=== PATIENT | female | born 1960 | race Caucasian/White ===

== ENCOUNTER 2024-06-30 13:08 | Emergency (ER) | payer MEDICARE, BC, SELFPAY ==
[2024-06-30 13:22] VITALS: BP 165/84
[2024-06-30 14:10] VITALS: BMI 28.6
--- NOTE | 2024-06-30 14:26 | EDRN ---
Pt has L ACW port and requested access and blood to be drawn from her port. Pt states it is a power port.
[2024-06-30 14:48] LABS: % Basophils 0.8 % (0-2); % Eosinophils 12.4 % (0-6); % Immature Granulocytes 0.2 % (0-0.5); % Lymphocytes 16.2 % (20.5-51.1); % Monocytes 11.2 % (1.7-9.3); % Neutrophils 59.2 % (42.2-75.2); Absolute Basophils 0.1 10^3/uL (0-0.2); Absolute Eosinophils 0.7 10^3/uL (0-0.7); Absolute Monocytes 0.7 10^3/uL (0.1-0.6); Absolute Neutrophils 3.5 10^3/uL (1.4-6.5); Hematocrit 38.9 % (37.0-47.0); Hemoglobin 13.7 g/dL (12.0-16.0); Mean Corp Hgb Conc. 35.2 g/dL (33.0-37.0); Mean Corpuscular Hgb 29.7 pg (27.0-31.0); Mean Corpuscular Volume 84.4 fL (81.0-99.0); Mean Platelet Volume 10.2 fL (7.4-10.4); Nucleated Red Blood Cells % 0 %; Platelet Count 172 10^3/uL (130-400); Red Blood Cell Count 4.61 10^6/uL (4.20-5.40); Red Cell Dist. Width 14.4 % (11.5-14.5)
--- NOTE | 2024-06-30 14:52 | ED.GENMED ---
History of Present Illness
General
Chief Complaint: Dehydration Symptoms
Source: patient
Exam Limitations: none
Time Seen by Provider: 06/30/24 14:06
Nursing documentation reviewed up to this point in time: agreed with
History of Present Illness
History of Present Illness:
Patient is a 64-year-old female with past medical history of breast cancer stroke hypertension presents to the ER complaining of weakness for the past weak. She wanted to be sure her sodium was not low as it was low in the past and put herself on a
fluid restriction of 70 ounces per day. Since then she has felt weak. She denies any fever or chills. Denies any nasal congestion cough cold symptoms. Denies any black stools. Denies any abdominal pain chest pain shortness of breath. She has
no other complaints.
Past History
Past History
ED Past Medical History: Cancer (Breast cancer), CVA (Right hemispheric CVA January 2022), HTN, Hypercholesterolemia, Valvular disease (Mitral and tricuspid regurgitation) and Other (Chronic headaches, back pain, neck pain)
ED Past Surgical History: Gynecological (Bilateral mastectomies) and Other (mastectomy)
Social History
Tobacco: Non-smoker
Alcohol: Occasional
Drug: None
Personal:
Living: with family
Employment: Retired
Family History
Family History: Hypertension
Review of Systems
Review of Systems
Allergies reviewed?: Yes
All Other Systems: ROS reviewed and negative except as documented in HPI and ROS
Constitutional: Reports fatigue
Respiratory: Reports no symptoms
Cardiac: Reports no symptoms; Denies chest pain, palpitations or syncope
ABD/GI: Reports no symptoms
: Reports no symptoms; Denies dysuria or incontinence
Musculoskeletal: Reports no symptoms
Neurological: Reports no symptoms
Psychiatric: Reports no symptoms
Phy Exam
General Physical Exam
General Presentation: no apparent distress
General age: appears stated age
General Skin: warm and dry
General Habitus: normal
General Mental: alert
General Hydration: appears well hydrated
Cardiovascular Exam
Cardiovascular Exam: regular rate/rhythm, no murmur and normal peripheral pulses
Pulmonary Exam
Pulmonary Exam: lungs clear and no respiratory distress
Neurological Exam
Neurological Exam: alert and oriented x3
Musculoskeletal Exam
Musculoskeletal Exam: full ROM
Skin Exam
Skin Exam: normal color and warm/dry
Psychiatric Exam
Psychiatric Exam: normal mood/affect
Course
Orders/Labs/Results
Orders:
Orders
06/30/24 14:06
Electrocardiogram (*1) Urgent
Reason for Study: Chest Pain
Cardiac Monitoring- Treatment ONCE
EKG- Treatment ONCE
IV Insert/Care/Rem.- Treatment PRN
06/30/24 14:39
Complete Blood Count/With Diff Urgent
Comprehensive Metabolic Panel Urgent
06/30/24 15:19
COVID-19 Antigen Urgent
Source: Nasal Swab
UA Reflex to Culture [Urinalysis Reflex To Culture] Urgent
Date Specimen was Collected: 06/30/24
Time Specimen was Collected: 15:13
Urine Microscopic Reflex Cult Urgent
06/30/24 16:47
0.9% Sodium Chloride 1000 ml [Nss] 1,000 ml IV BOLUS
Abnormal Lab Results
06/30/24 06/30/24
14:39 15:19
Absolute Lymphs (auto) 1.0 L 10^3/uL
(1.2-3.4)
Absolute Monos (auto) 0.7 H 10^3/uL
(0.1-0.6)
Lymphocytes % 16.2 L %
(20.5-51.1)
Monocytes % 11.2 H %
(1.7-9.3)
Eosinophils % 12.4 H %
(0-6)
Sodium 134 L mmol/L
(135-145)
BUN 36 H mg/dl
(7-17)
Glucose 122 H mg/dl
(70-99)
AST 54 H U/L
(14-36)
ALT 89 H U/L
(0-35)
Alkaline Phosphatase 192 H U/L
(38-126)
Total Protein 6.2 L g/dl
(6.3-8.2)
Leukocyte Esterase Rfl Trace A
(Negative)
06/30/24 14:39
06/30/24 14:39
Vital Signs
Initial and Last Documented VS:
Initial Vital Signs
Temp Pulse Resp BP Pulse Ox
98.8 F 80 20 165/84 97
06/30/24 13:22 06/30/24 13:22 06/30/24 13:22 06/30/24 13:22 06/30/24 13:22
Last Documented Vital Signs
Temp Pulse Resp BP Pulse Ox
98.8 F 70 21 154/81 95
06/30/24 13:22 06/30/24 16:30 06/30/24 16:30 06/30/24 16:00 06/30/24 16:30
MDM/Problems Addressed
MDM/Problems Addressed:
Patient is a 64-year-old male who presents to the ER appearing well. She has put her self on a fluid restriction because she was afraid her sodium was low and complains of weakness. Patient presented with a normal sodium of 134 however BUN of 36.
She appears dry on exam. She was hydrated here and feeling better. She is in no acute distress she has no other complaints. She denies any chest pain shortness of breath cough. She was tested for COVID and is negative. She has had elevated LFTs
in the past and they are again elevated. She denies any UTI symptoms and her UA is negative.
She was hydrated here in the ER and feels well after the home. She has an appoint with her primary care physician on for regular checkup. She has seen nephrology in the past and I did recommend that she should follow-up with them again.
She is to return if any worsening of symptoms however she is well-appearing in no acute distress .
she does have a history of high blood pressure however is due again for additional blood pressure medication
*Pulse Oximetry
Patient hypoxic: no
*EKG
Comparison EKG: no changes
Heart Rate: 71
Rate: normal
*Critical Care Note
Total Time (30-74mins, 75-104mins- exclusive of procedures): Not Applicable
ED Attending Note
-
Portions of this chart may have been created with voice recognition software.� Occasional wrong word or��sound alike� substitutions may have occurred due to the inherent limitations of voice recognition software.
Discharge Plan
Departure
Patient Disposition: Home (Routine Discharge)
Date of Disposition: 06/30/24
Time of Disposition: 18:08
Patient with high blood pressure during this ER visit?: Yes
Covid-19: Not Applicable
Discharge Problem:
Weakness
Instructions: Weakness ED, BLOOD PRESSURE
Prescriptions:
No Action
spironolactone 25 mg Tablet
25 mg PO DAILY
labetalol 300 mg Tablet
300 mg PO BID
lacosamide 100 mg Tablet
100 mg PO BID
calcium carbonate 600 mg calcium (1,500 mg) Tablet
600 mg PO BID
Centrum Adult 50 Plus
1 tab PO DAILY
lidocaine 4 % Adhesive Patch,Medicated
1 patch topical DAILY Qty: 5 0RF
polyethylene glycol 3350 [HealthyLax] 17 gram Powder In Packet
17 g PO DAILY Qty: 14 0RF
oxycodone 5 mg Tablet
5 mg PO Q4HPRN PRN (Reason: moderate pain) Qty: 4 0RF
lisinopril 20 mg Tablet
20 mg PO DAILY Qty: 30 0RF
aspirin 81 MG tablet,chewable
81 mg PO DAILY Qty: 4 0RF
nifedipine 30 MG tablet extended release
30 mg PO DAILY Qty: 90 0RF
nifedipine 60 MG tablet extended release
60 mg PO HS Qty: 90 0RF
Referrals:
Mell Sheikh PA-C [Family Provider] -
Amada Vergara MD [Active] -
Activity Restrictions/Additional Instructions:
Follow-up with your family doctor as scheduled on for reevaluation as well as your kidney specialist . please call their office to make an appointment return if any worsening of symptoms
Interventions
Interventions:
*Risk Screen - Suicide Last Done: 06/30/24 14:10
*General Assessment Last Done: 06/30/24 14:10
*Neglect/Abuse Screening Last Done: 06/30/24 14:10
ED- Fall Risk Assessment Last Done: 06/30/24 14:10
*ED COVID-19 Vaccine History Last Done: 06/30/24 14:10
ED- Cardiac Assessment Last Done: 06/30/24 14:30
ED- Neurological Assessment Last Done: 06/30/24 14:30
ED- Pulmonary Assessment Last Done: 06/30/24 14:30
Discharge Date and Time
Print Language: GREEK
--- NOTE | 2024-06-30 14:55 | EDRN ---
Sunil Patel NP in room w/pt.
--- NOTE | 2024-06-30 15:06 | EDRN ---
Pt in BR attempting urine spec at this time.
[2024-06-30 15:07] LABS: ALT (SGPT) 89 U/L (0-35); AST (SGOT) 54 U/L (14-36); Albumin 4.1 g/dl (3.5-5.0); Alkaline Phosphatase 192 U/L (38-126); Blood Urea Nitrogen 36 mg/dl (7-17); Calcium 9.2 mg/dl (8.4-10.2); Carbon Dioxide 22 mmol/L (22-30); Chloride 103 mmol/L (98-107); Estimated Creatinine Clearance 65 ml/min; Glucose 122 mg/dl (70-99); Potassium 4.4 mmol/L (3.5-5.1); Sodium 134 mmol/L (135-145); Total Bilirubin 0.3 mg/dl (0.2-1.3); Total Protein 6.2 g/dl (6.3-8.2); eGFR > 60.00
[2024-06-30 15:13] VITALS: BP 169/86
[2024-06-30 15:31] LABS: Urine Albumin Negative (Neg - Trace); Urine Bilirubin Negative (Negative); Urine Character Clear (Clear); Urine Color Straw; Urine Glucose Negative (Negative); Urine Ketone Negative (Negative); Urine Leukocyte Trace (Negative); Urine Nitrite Negative (Negative); Urine Occult Blood Negative (Negative); Urine Urobilinogen Negative (Neg - 1+); Urine pH 6.5 (5.0-9.0)
[2024-06-30 15:42] LABS: COVID-19 Antigen Negative (Negative)
[2024-06-30 15:43] LABS: Urine Red Blood Cell 0-2 /HPF (0-2); Urine White Cell 0-2 /HPF (0-5)
[2024-06-30 16:00] VITALS: BP 154/81
[2024-06-30] MEDS: NSS 1000 IV (16:58)
--- NOTE | 2024-06-30 16:58 | EDRN ---
This RN went into room to hang ordered IVF NSS wide open. Pt said that she could not have that much fluid or she will have a stroke. Spouse agreed to this. Pt also said that she is only allowed 70 ounces of fluid a day. Pt's BUN is 36 w/ 0.9 creat.
Pt was informed that she is very very dry and needs IV fluids per LABORATORY ADMINISTRATIVE DIRECTOR. Pt agreed to RN hanging IVF at this time.
[2024-06-30 17:00] VITALS: BP 175/102
--- NOTE | 2024-06-30 17:45 | EDRN ---
Sunil Patel FINAL ARMATURE TESTER in room w/ pt at this time.
[2024-06-30 18:00] VITALS: BP 210/99
--- NOTE | 2024-06-30 18:22 | EDRN ---
IV VAT RN Shira is deaccessing port at this time.
--- NOTE | 2024-06-30 18:43 | VATNOTE ---
left subq power port deaccesed per protocol however PCN, david Negrete, flushed with heparin prior to this VAT RN deaccessing port. at bedside.
== END 2024-06-30 18:30 | disposition home or self-care (01) ==
LOC: EMR 13:08
PROVIDERS: Emergency Medicine; Nurse Practitioner; EMERGENCY PHYSICIAN Emergency Medicine; FAMILY PHYSICIAN Physician Assistant Medical
DX: R53.1 Weakness (principal); R53.83 Other fatigue; Z11.52 Encounter for screening for COVID-19; C50.919 Malignant neoplasm of unspecified site of unspecified female breast; I10 Essential (primary) hypertension; E78.00 Pure hypercholesterolemia, unspecified; I08.1 Rheumatic disorders of both mitral and tricuspid valves; R56.9 Unspecified convulsions; M19.90 Unspecified osteoarthritis, unspecified site; Z79.82 Long term (current) use of aspirin; Z86.73 Personal history of transient ischemic attack (TIA), and cerebral infarction without residual deficits; Z90.13 Acquired absence of bilateral breasts and nipples; Z88.1 Allergy status to other antibiotic agents
CPT/HCPCS: 99284; 96360; 80053; 81003; 81015; 85025; 87811; 93005

== ENCOUNTER 2024-07-13 01:44 | Emergency (ER) | payer MEDICARE, BC, SELFPAY ==
[2024-07-13 01:45] VITALS: BMI 29.5
[2024-07-13 01:47] VITALS: BP 166/91
[2024-07-13 02:50] VITALS: BP 175/93
--- NOTE | 2024-07-13 02:53 | ED.GENMED ---
History of Present Illness
General
Chief Complaint: Dehydration Symptoms
Source: patient and previous hospital records (ED visit there 2 weeks ago June 30 for somewhat similar complaint; Prior hospitalization November 2023 for lumbar compression fracture. Discharged to senior care facility for short stay rehab.)
Exam Limitations: none
Time Seen by Provider: 07/13/24 02:37
Nursing documentation reviewed up to this point in time: agreed with
History of Present Illness
History of Present Illness:
This is a 64-year-old woman who resides at home with her . She has remote history of breast cancer with completion of treatment 2011. No history of recurrence. She has prior history of CVA 2021, hypertension, hyperlipidemia, history of
lumbar spine compression fracture with brief hospitalization November 2023 and then brief SNF stay thereafter for rehabilitation.
She complains of generalized weakness, generalized myalgias/arthralgias that began at least 3 weeks ago and was evaluated in this ED June 30 for similar complaints. At that time she had thought that perhaps her sodium level was low as she has a
remote history of hyponatremia and thus she placed herself on a fluid restriction for a week prior to ED visit on June 30.
Labs were unremarkable save for moderately elevated BUN, normal sodium, normal electrolytes. She was hydrated with 1 L normal saline solution and was feeling improved. Discharged to home and admits to feeling improved for approximately 3 days and
then symptoms have recurred since. She has since followed up with her primary care physician and was recommended to drink Gatorade throughout the day and she has been attempting to be liberal with her fluids but continues with generalized myalgias,
arthralgias but no fever, no dizziness nor lightheadedness, no abdominal pain but she does admit to intermittent queasiness and tonight had brief retching without vomiting.
She has had no diarrhea nor constipation, no dysuria and urgency and or hematuria. No headache, no palpitations.
Past History
Past History
ED Past Medical History: Cancer (Breast cancer), CVA (Right hemispheric CVA January 2022), HTN, Hypercholesterolemia, Valvular disease (Mitral and tricuspid regurgitation) and Other (Chronic headaches, back pain, neck pain)
ED Past Surgical History: Gynecological (Bilateral mastectomies) and Other (mastectomy)
Social History
Tobacco: Non-smoker
Alcohol: Occasional
Drug: None
Personal:
Living: with family
Employment: Retired
Family History
Family History: Hypertension
Phy Exam
Physical Exam
Physical Exam:
GENERAL: Alert , in no apparent distress. 64-year-old woman appears her stated age, awake and alert, pleasant, appears in no acute distress. is accompanying.
EYE: pupils equal and reactive. anicteric
NECK: Supple, nontender, no meningismus, no significant adenopathy.
ENT: posterior pharynx is clear, oral mucosa is very minimally dry.. TM clear b/l, nares patent.
CARDIAC: Regular rate and rhythm. no murmur.
LUNGS: Clear breath sounds bilaterally, no acute respiratory distress, no wheezes/rales/rhonchi
ABDOMEN: Soft, nondistended, without focal tenderness, no r/g, no cvat. normoactive BS.
NEUROLOGICAL: Alert and oriented x3, no focal neuro deficits. Motor strength is 5/5 bilaterally. Gross sensation is intact.
SKIN: Warm and dry, normal color, skin intact. No rash.
MUSCULOSKELETAL: No C/C/E. peripheral pulses are full and equal b/l. No palpable tenderness.
PSYCH: Normal and appropriate interaction.
Course
Orders/Labs/Results
Orders:
Orders
07/13/24 02:58
CRP [C-Reactive Protein] Urgent
Complete Blood Count/With Diff Urgent
Comprehensive Metabolic Panel Urgent
Creatine Phosphokinase Urgent
Free T4 Urgent
Lipase Urgent
Sed Rate [Erythrocyte Sed Rate] Urgent
TSH Reflex To Free T4 Urgent
Urinalysis Reflex To Culture Urgent
Date Specimen was Collected: 07/13/24
Time Specimen was Collected: 02:54
Urine Microscopic Reflex Cult Urgent
07/13/24 04:01
0.9% Sodium Chloride 1000 ml [Nss] 1,000 ml IV BOLUS
07/13/24 04:41
Electrocardiogram (*1) Urgent
Reason for Study: Atrial Fibrillation
07/13/24 04:43
Add On- LAB Urgent
Comments:: CPK
Tests Added?: CPK
Abnormal Lab Results
07/13/24
02:58
MPV 11.3 H fL
(7.4-10.4)
Absolute Eos (auto) 1.0 H 10^3/uL
(0-0.7)
Eosinophils % 15.4 H %
(0-6)
BUN 37 H mg/dl
(7-17)
Glucose 102 H mg/dl
(70-99)
ALT 49 H U/L
(0-35)
Alkaline Phosphatase 172 H U/L
(38-126)
TSH (Reflex) 6.06 H uIU/ml
(0.47-4.68)
Leukocyte Esterase Rfl Trace A
(Negative)
07/13/24 02:58
07/13/24 02:58
Vital Signs
Initial and Last Documented VS:
Initial Vital Signs
Temp Pulse Resp BP Pulse Ox
98.1 F 62 20 166/91 98
07/13/24 01:47 07/13/24 01:47 07/13/24 01:47 07/13/24 01:47 07/13/24 01:47
Last Documented Vital Signs
Temp Pulse Resp BP Pulse Ox
97.6 F 72 23 149/90 97
07/13/24 02:48 07/13/24 06:07 07/13/24 06:07 07/13/24 06:07 07/13/24 06:07
MDM/Problems Addressed
Differential Diagnosis Includes:
Patient presents with ongoing, at least 3-week history of several nonspecific complaints including generalized myalgias, arthralgias, generalized weakness.
She is concerned for recurrent dehydration however has abandoned fluid restriction and has been attempting to be more liberal with her fluids over the past 2 weeks. She has had no vomiting or diarrhea thus should have no reason to be dehydrated.
She is chronically maintained on potassium sparing diuretic/spironolactone but there has been no recent change in medications.
Overall exam is benign. No focal neurodeficits.
Will repeat labs, assess for potential electrolyte abnormality, assess for continued dehydration/prerenal azotemia, will check thyroid functions due to myalgias will check sed rate and CPK as well. Concern for potential polymyalgia rheumatica,
myositis.
Chronic conditions affecting care: HTN, Neurological disorder, Psychiatric illness and Cancer
*Pulse Oximetry
Patient hypoxic: no
*[place] Clerk Interpretation
Rate: normal
Interpretation: normal
Rhythm: sinus
*Critical Care Note
Total Time (30-74mins, 75-104mins- exclusive of procedures): Not Applicable
Update Note
Update Note:
07/13/2024 0700 AM
Labs show normal electrolytes but BUN remains elevated at 37, normal creatinine. Normal CBC. Unremarkable inflammatory markers. Normal CPK.
TSH is mildly elevated at 6.06 but normal free T4 at 1.4.
Patient feeling improved after 1 L of IV fluids.
Recommend she stay well-hydrated on a daily basis, drink plenty of water etc.
Follow-up with PCP. If symptoms persist would recommend repeating thyroid functions in perhaps 2 to 3 months and consider initiating one half dose of diuretic.
Return precautions discussed.
ED Attending Note
-
Portions of this chart may have been created with voice recognition software.� Occasional wrong word or��sound alike� substitutions may have occurred due to the inherent limitations of voice recognition software.
Discharge Plan
Departure
Patient Disposition: Home (Routine Discharge)
Date of Disposition: 07/13/24
Time of Disposition: 06:59
Patient with high blood pressure during this ER visit?: No
Condition: Good
Discharge Problem:
Prerenal azotemia, Malaise and fatigue
Instructions: Why Water Is Important to Health, Dehydration, Adult ED
Prescriptions:
No Action
spironolactone 25 mg Tablet
25 mg PO DAILY
labetalol 300 mg Tablet
300 mg PO BID
lacosamide 100 mg Tablet
100 mg PO BID
calcium carbonate 600 mg calcium (1,500 mg) Tablet
600 mg PO BID
Centrum Adult 50 Plus
1 tab PO DAILY
lidocaine 4 % Adhesive Patch,Medicated
1 patch topical DAILY Qty: 5 0RF
oxycodone 5 mg Tablet
5 mg PO Q4HPRN PRN (Reason: moderate pain) Qty: 4 0RF
aspirin 81 MG tablet,chewable
81 mg PO DAILY Qty: 4 0RF
nifedipine 30 MG tablet extended release
30 mg PO DAILY Qty: 90 0RF
nifedipine 60 MG tablet extended release
60 mg PO HS Qty: 90 0RF
Referrals:
Mell Sheikh PA-C [Family Provider] - Call in 1-3 days for appt
Interventions
Interventions:
*General Assessment Last Done: 07/13/24 01:50
*Neglect/Abuse Screening Last Done: 07/13/24 01:50
ED- Fall Risk Assessment Last Done: 07/13/24 03:25
ED- Cardiac Assessment Last Done: 07/13/24 03:25
ED- Neurological Assessment Last Done: 07/13/24 03:25
ED- Pulmonary Assessment Last Done: 07/13/24 03:25
Discharge Date and Time
Print Language: FAROESE
[2024-07-13 03:18] LABS: % Basophils 0.8 % (0-2); % Eosinophils 15.4 % (0-6); % Immature Granulocytes 0.2 % (0-0.5); % Lymphocytes 20.8 % (20.5-51.1); % Monocytes 8.6 % (1.7-9.3); % Neutrophils 54.2 % (42.2-75.2); Absolute Basophils 0.1 10^3/uL (0-0.2); Absolute Lymphocytes 1.4 10^3/uL (1.2-3.4); Absolute Monocytes 0.6 10^3/uL (0.1-0.6); Absolute Neutrophils 3.6 10^3/uL (1.4-6.5); Hematocrit 40.6 % (37.0-47.0); Hemoglobin 14.2 g/dL (12.0-16.0); Mean Corpuscular Hgb 29.5 pg (27.0-31.0); Mean Corpuscular Volume 84.2 fL (81.0-99.0); Mean Platelet Volume 11.3 fL (7.4-10.4); Nucleated Red Blood Cells % 0 %; Platelet Count 184 10^3/uL (130-400); Red Blood Cell Count 4.82 10^6/uL (4.20-5.40); Red Cell Dist. Width 14.4 % (11.5-14.5); White Blood Cell Count 6.5 10^3/uL (4.8-10.8)
[2024-07-13 03:19] LABS: Urine Albumin Negative (Neg - Trace); Urine Bilirubin Negative (Negative); Urine Character Clear (Clear); Urine Color Straw; Urine Glucose Negative (Negative); Urine Ketone Negative (Negative); Urine Leukocyte Trace (Negative); Urine Nitrite Negative (Negative); Urine Occult Blood Negative (Negative); Urine Urobilinogen Negative (Neg - 1+)
[2024-07-13 03:29] LABS: Erythrocyte Sed Rate 8 mm/hour (0-20); Urine Red Blood Cell None Seen /HPF (0-2); Urine White Cell 0-2 /HPF (0-5)
[2024-07-13 03:58] LABS: ALT (SGPT) 49 U/L (0-35); AST (SGOT) 34 U/L (14-36); Albumin 4.5 g/dl (3.5-5.0); Alkaline Phosphatase 172 U/L (38-126); Blood Urea Nitrogen 37 mg/dl (7-17); Carbon Dioxide 22 mmol/L (22-30); Chloride 102 mmol/L (98-107); Estimated Creatinine Clearance 59 ml/min; Glucose 102 mg/dl (70-99); Lipase 155 U/L (23-300); Potassium 4.1 mmol/L (3.5-5.1); Sodium 136 mmol/L (135-145); Total Bilirubin 0.5 mg/dl (0.2-1.3); Total Protein 6.6 g/dl (6.3-8.2); eGFR > 60.00
[2024-07-13 04:00] VITALS: BP 150/73
[2024-07-13] MEDS: NSS 1000 IV (04:24)
[2024-07-13 04:28] LABS: TSH Reflex To Free T4 6.06 uIU/ml (0.47-4.68)
[2024-07-13 04:41] LABS: C-Reactive Protein < 5.00 mg/L (0.0-10.00)
[2024-07-13 05:00] VITALS: BP 154/92
[2024-07-13 05:05] LABS: Creatine Phosphokinase 51 U/L (30-135)
[2024-07-13 06:07] VITALS: BP 149/90
[2024-07-13 07:15] VITALS: BP 142/74
== END 2024-07-13 07:58 | disposition home or self-care (01) ==
LOC: EMR 01:44
PROVIDERS: EMERGENCY PHYSICIAN Emergency Medicine; FAMILY PHYSICIAN Physician Assistant Medical; REFERRING PHYSICIAN Internal Medicine
DX: E86.0 Dehydration (principal); I10 Essential (primary) hypertension; E78.00 Pure hypercholesterolemia, unspecified; I48.91 Unspecified atrial fibrillation; Z82.49 Family history of ischemic heart disease and other diseases of the circulatory system; Z85.3 Personal history of malignant neoplasm of breast; Z86.73 Personal history of transient ischemic attack (TIA), and cerebral infarction without residual deficits; Z90.13 Acquired absence of bilateral breasts and nipples
CPT/HCPCS: 99282; 96374; 96361; 80053; 81003; 81015; 82550; 83690; 84439; 84443; 85025; 85652; 86140

== ENCOUNTER 2024-07-27 12:06 | Emergency (ER) | payer MEDICARE, BC, SELFPAY ==
[2024-07-27 12:08] VITALS: BP 202/105
--- NOTE | 2024-07-27 12:55 | ED.GENMED ---
History of Present Illness
General
Chief Complaint: Headache
Source: patient
Time Seen by Provider: 07/27/24 12:37
History of Present Illness
History of Present Illness:
64yoF with a history of prior CVA, hypertension, and CKD presenting with her for evaluation of a headache. Symptoms initially started yesterday with a 'gripping' sensation in her neck muscles as well as the back of her right knee. She has
had the symptoms previously which have been attributed to dehydration. Patient was watching the football game less than an hour prior to arrival. She had an abrupt onset of a right sided parietal headache. This was followed by right facial
twitching. She states she felt a 'mcnulty of something' throughout her body and had a weird sensation. She then felt like she could not get her words out correctly so she came to the ED. Patient is speaking normally currently. Symptoms have
resolved with the exception of the headache. She had nausea at that time but denies any vomiting
Past History
Past History
ED Past Medical History: Cancer (Breast cancer), CVA (Right hemispheric CVA January 2022), HTN, Hypercholesterolemia, Valvular disease (Mitral and tricuspid regurgitation) and Other (Chronic headaches, back pain, neck pain)
ED Past Surgical History: Gynecological (Bilateral mastectomies) and Other (mastectomy)
Social History
Tobacco: Non-smoker
Alcohol: Occasional
Drug: None
Personal:
Living: with family
Employment: Retired
Family History
Family History: Hypertension
Phy Exam
General Physical Exam
General Presentation: well appearing and no apparent distress
General age: appears stated age
General Skin: warm and dry
General Habitus: normal
General Mental: alert
Cardiovascular Exam
Cardiovascular Exam: regular rate/rhythm
Pulmonary Exam
Pulmonary Exam: lungs clear, no respiratory distress, no crackles and no wheezing
Neurological Exam
Neurological Exam: alert, CN II-XII intact, no motor deficits, no sensory deficits, speech normal and other (CN 2-12 intact. PERRL. EOMs intact. Visual nath normal. 5/5 strength and gross sensation intact in all extremities. Negative drift x4.
Normal finger to nose and heel to saucedo bilaterally. )
NIH Stroke Score
Level of Consciousness: 0 - Alert
LOC questions: 0-Answers both correctly
LOC Commands: 0-Performs both correctly
Best Gaze: 0-Normal
Visual Nath: 0=Normal, no visual loss
Facial palsy: 0=Normal, symmetrical
Motor - Right Arm: 0=No drift 10 seconds
Motor - Left Arm: 0=No drift 10 seconds
Motor - Right Le-No drift 5 seconds
Motor - Left Le-No drift 5 seconds
Limb Ataxia: 0-Absent
Sensation: 0-Normal
Best Language: 0-No aphasia
Dysarthria: 0-Normal
Extinction and Inattention: 0-No abnormality
Total Score:: 0
Kashif Coma Scale
Eye Opening: Spontaneous
Verbal Response: Oriented
Motor Response: Obeys Commands
GCS Total Score: 15
Skin Exam
Skin Exam: normal color and warm/dry
Psychiatric Exam
Psychiatric Exam: normal mood/affect
Course
Orders/Labs/Results
Orders:
Orders
07/27/24 12:12
CT Head W/o Iv Contrast Urgent
Comment:
Reason For Exam: headache
07/27/24 13:00
0.9% Sodium Chloride 500 ml [Nss] 500 ml IV BOLUS
07/27/24 13:35
Complete Blood Count/With Diff Urgent
Comprehensive Metabolic Panel Urgent
ESR [Erythrocyte Sed Rate] Urgent
Lipase Urgent
Magnesium Urgent
Abnormal Lab Results
07/27/24
13:35
MPV 10.8 H fL
(7.4-10.4)
Absolute Lymphs (auto) 0.9 L 10^3/uL
(1.2-3.4)
Lymphocytes % 12.7 L %
(20.5-51.1)
Eosinophils % 8.0 H %
(0-6)
Sodium 133 L mmol/L
(135-145)
Chloride 95 L mmol/L
(98-107)
BUN 26 H mg/dl
(7-17)
Glucose 104 H mg/dl
(70-99)
AST 40 H U/L
(14-36)
ALT 50 H U/L
(0-35)
Alkaline Phosphatase 158 H U/L
(38-126)
07/27/24 13:35
07/27/24 13:35
Vital Signs
Initial and Last Documented VS:
Initial Vital Signs
Temp Pulse Resp BP Pulse Ox
98.5 F 67 16 202/105 98
07/27/24 12:08 07/27/24 12:08 07/27/24 12:08 07/27/24 12:08 07/27/24 12:08
Last Documented Vital Signs
Temp Pulse Resp BP Pulse Ox
98.5 F 68 25 196/98 97
07/27/24 12:08 07/27/24 13:01 07/27/24 13:01 07/27/24 13:01 07/27/24 13:01
MDM/Problems Addressed
Differential Diagnosis Includes:
64yoF here with a headache. Started less than an hour ago. Associated with R facial twitching and a 'rushing' sensation. Patient also felt like she was having trouble getting her words out. Symptoms have resolved other than her headache. She is
hypertensive on arrival with otherwise normal vitals. She is well appearing in no distress. Neuro exam is non-focal. NIHSS 0. Differential diagnosis includes but is not limited to: complex migraine, electrolyte abnormality, dehydration, TIA
Initial ED plan: Check CBC, CMP, ESR, magnesium, and CT head. IV fluid bolus.
*Critical Care Note
Total Time (30-74mins, 75-104mins- exclusive of procedures): Not Applicable
Update Note
Update Note:
ESR is normal. Potassium/chloride mildly low. Renal function at baseline. CT head is negative for acute findings. On reassessment, headache has resolved and she is feeling much better. BP improved with SBP in the 170s. She is stable for discharge.
Advised close f/u with PCP and strict ED return precautions discussed. She was discharged in stable condition.
ED Attending Note
-
Portions of this chart may have been created with voice recognition software.� Occasional wrong word or��sound alike� substitutions may have occurred due to the inherent limitations of voice recognition software.
Discharge Plan
Departure
Patient Disposition: Home (Routine Discharge)
Date of Disposition: 07/27/24
Time of Disposition: 15:29
Patient with high blood pressure during this ER visit?: Yes
Discharge Problem:
Acute nonintractable headache
Instructions: Headache, Adult (DC)
Prescriptions:
No Action
spironolactone 25 mg Tablet
25 mg PO DAILY
labetalol 300 mg Tablet
300 mg PO BID
lacosamide 100 mg Tablet
100 mg PO BID
calcium carbonate 600 mg calcium (1,500 mg) Tablet
600 mg PO BID
Centrum Adult 50 Plus
1 tab PO DAILY
lidocaine 4 % Adhesive Patch,Medicated
1 patch topical DAILY Qty: 5 0RF
oxycodone 5 mg Tablet
5 mg PO Q4HPRN PRN (Reason: moderate pain) Qty: 4 0RF
aspirin 81 MG tablet,chewable
81 mg PO DAILY Qty: 4 0RF
nifedipine 30 MG tablet extended release
30 mg PO DAILY Qty: 90 0RF
nifedipine 60 MG tablet extended release
60 mg PO HS Qty: 90 0RF
Referrals:
Mell Sheikh PA-C [Family Provider] -
Activity Restrictions/Additional Instructions:
Drink plenty of fluids and stay hydrated.
Please call your family doctor tomorrow for follow-up. Return to the ER with any new or worsening symptoms.
Interventions
Interventions:
*Risk Screen - Suicide Last Done: 07/27/24 12:08
*General Assessment Last Done: 07/27/24 12:08
*Neglect/Abuse Screening Last Done: 07/27/24 12:08
ED- Fall Risk Assessment Last Done: 07/27/24 16:27
*ED COVID-19 Vaccine History Last Done: 07/27/24 12:08
*Nursing Disposition Last Done: 07/27/24 16:27
ED- Neurological Assessment Last Done: 07/27/24 12:54
Discharge Date and Time
Discharge Date/Time: 07/27/24 16:27
Print Language: YI
[2024-07-27 12:58] VITALS: BMI 27.9
[2024-07-27 13:01] VITALS: BP 196/98
[2024-07-27] MEDS: NSS 500 IV (13:40)
[2024-07-27 13:50] LABS: % Basophils 0.6 % (0-2); % Immature Granulocytes 0.1 % (0-0.5); % Lymphocytes 12.7 % (20.5-51.1); % Monocytes 8.4 % (1.7-9.3); % Neutrophils 70.2 % (42.2-75.2); Absolute Eosinophils 0.6 10^3/uL (0-0.7); Absolute Lymphocytes 0.9 10^3/uL (1.2-3.4); Absolute Monocytes 0.6 10^3/uL (0.1-0.6); Absolute Neutrophils 4.9 10^3/uL (1.4-6.5); Hemoglobin 14.1 g/dL (12.0-16.0); Mean Corp Hgb Conc. 35.3 g/dL (33.0-37.0); Mean Corpuscular Hgb 29.5 pg (27.0-31.0); Mean Corpuscular Volume 83.7 fL (81.0-99.0); Mean Platelet Volume 10.8 fL (7.4-10.4); Nucleated Red Blood Cells % 0 %; Platelet Count 168 10^3/uL (130-400); Red Blood Cell Count 4.78 10^6/uL (4.20-5.40); Red Cell Dist. Width 13.8 % (11.5-14.5); White Blood Cell Count 6.9 10^3/uL (4.8-10.8)
[2024-07-27 14:04] LABS: Erythrocyte Sed Rate 8 mm/hour (0-20)
[2024-07-27 14:19] LABS: ALT (SGPT) 50 U/L (0-35); AST (SGOT) 40 U/L (14-36); Albumin 4.4 g/dl (3.5-5.0); Alkaline Phosphatase 158 U/L (38-126); Blood Urea Nitrogen 26 mg/dl (7-17); Calcium 9.3 mg/dl (8.4-10.2); Carbon Dioxide 24 mmol/L (22-30); Chloride 95 mmol/L (98-107); Estimated Creatinine Clearance 73 ml/min; Glucose 104 mg/dl (70-99); Potassium 3.8 mmol/L (3.5-5.1); Sodium 133 mmol/L (135-145); Total Bilirubin 0.5 mg/dl (0.2-1.3); Total Protein 6.7 g/dl (6.3-8.2); eGFR > 60.00
[2024-07-27 14:43] LABS: Lipase 103 U/L (23-300)
== END 2024-07-27 16:27 | disposition home or self-care (01) ==
LOC: EMR 12:06
PROVIDERS: Emergency Medicine; EMERGENCY PHYSICIAN Emergency Medicine; FAMILY PHYSICIAN Physician Assistant Medical
DX: R51.9 Headache, unspecified (principal); I12.9 Hypertensive chronic kidney disease with stage 1 through stage 4 chronic kidney disease, or unspecified chronic kidney disease; N18.9 Chronic kidney disease, unspecified; E78.00 Pure hypercholesterolemia, unspecified; Z82.49 Family history of ischemic heart disease and other diseases of the circulatory system; Z85.3 Personal history of malignant neoplasm of breast; Z86.73 Personal history of transient ischemic attack (TIA), and cerebral infarction without residual deficits; Z90.13 Acquired absence of bilateral breasts and nipples
CPT/HCPCS: 99284; 96360; 70450; 80053; 83690; 83735; 85025; 85652

== ENCOUNTER 2024-08-14 12:43 | Emergency (ER) | payer MEDICARE, BC, SELFPAY ==
[2024-08-14 12:50] VITALS: BP 129/71
--- NOTE | 2024-08-14 13:24 | ED.GENMED ---
History of Present Illness
General
Chief Complaint: Dehydration Symptoms
Source: patient
Time Seen by Provider: 08/14/24 12:58
History of Present Illness
History of Present Illness:
64yoF with a history of hypertension, prior CVA, and CKD presenting for concern for dehydration. Patient woke up this morning with a cramp behind her right thigh. She also reports muscle cramping in her bilateral arms. She went to drink some
Gatorade when she started to feel lightheaded and she had a near syncopal episode. Patient drank 2 Gatorades with some improvement but she continues to feel generally weak. She has ongoing issues with dehydration and her PCP has her drinking 2
Propels a day. She switched to Gatorade a few days ago because the Propel was hurting her stomach. She denies any fevers, vomiting, diarrhea, chest pain, shortness of breath, palpitations.
Past History
Past History
ED Past Medical History: Cancer (Breast cancer), CVA (Right hemispheric CVA January 2022), HTN, Hypercholesterolemia, Valvular disease (Mitral and tricuspid regurgitation) and Other (Chronic headaches, back pain, neck pain)
ED Past Surgical History: Gynecological (Bilateral mastectomies) and Other (mastectomy)
Social History
Tobacco: Non-smoker
Alcohol: Occasional
Drug: None
Personal:
Living: with family
Employment: Retired
Family History
Family History: Hypertension
Phy Exam
General Physical Exam
General Presentation: well appearing and no apparent distress
General Skin: warm and dry
General Habitus: normal
General Mental: alert
ENT Exam
ENT Exam: normocephalic
Cardiovascular Exam
Cardiovascular Exam: regular rate/rhythm
Pulmonary Exam
Pulmonary Exam: lungs clear, no respiratory distress, no rales, no crackles and no wheezing
Kashif Coma Scale
Eye Opening: Spontaneous
Verbal Response: Oriented
Motor Response: Obeys Commands
GCS Total Score: 15
Skin Exam
Skin Exam: normal color and warm/dry
Psychiatric Exam
Psychiatric Exam: anxious
Course
Orders/Labs/Results
Orders:
Orders
08/14/24 13:23
Electrocardiogram (*1) Urgent
Reason for Study: Fatigue / Weakness
EKG- Treatment ONCE
Venous Doppler Lwr Ext Rt [US Periph Venous LOWER Ext RT] Urgent
Comment:
Reason For Exam: R posterior leg pain
08/14/24 13:24
0.9% Sodium Chloride 500 ml [Nss] 500 ml IV BOLUS
08/14/24 14:47
Complete Blood Count/With Diff Urgent
Comprehensive Metabolic Panel Urgent
Magnesium Urgent
Total CK [Creatine Phosphokinase] Urgent
Troponin I Urgent
08/14/24 17:00
Heparin Pf [Heparin Lock Flush] 500 unit IV PER PROTOCOL
Abnormal Lab Results
08/14/24
14:47
Absolute Lymphs (auto) 1.1 L 10^3/uL
(1.2-3.4)
Lymphocytes % 18.3 L %
(20.5-51.1)
Eosinophils % 11.9 H %
(0-6)
Sodium 134 L mmol/L
(135-145)
BUN 25 H mg/dl
(7-17)
ALT 39 H U/L
(0-35)
Alkaline Phosphatase 147 H U/L
(38-126)
Total Protein 6.0 L g/dl
(6.3-8.2)
08/14/24 14:47
08/14/24 14:47
Vital Signs
Initial and Last Documented VS:
Initial Vital Signs
Temp Pulse Resp BP Pulse Ox
98.0 F 60 16 129/71 98
08/14/24 12:50 08/14/24 12:50 08/14/24 12:50 08/14/24 12:50 08/14/24 12:50
Last Documented Vital Signs
Temp Pulse Resp BP Pulse Ox
98.0 F 85 16 142/78 98
08/14/24 12:50 08/14/24 17:33 08/14/24 17:33 08/14/24 17:33 08/14/24 17:33
MDM/Problems Addressed
Differential Diagnosis Includes:
64yoF here with muscle cramping that started in R posterior thigh. Also had a near syncopal episode. Believes she is dehydrated. No CP/SOB/palpitations. Patient is afebrile and hemodynamically stable. She is anxious on exam but well-appearing.
Exam. Differential diagnosis includes but is not limited to: Electrolyte abnormality, dehydration, rhabdomyolysis, less likely DVT
Initial ED plan: Check cardiac labs, CK, magnesium, EKG, and venous duplex. IV fluid bolus.
*EKG
Interpreted by ED Provider?: Yes
EKG Intrepretation Date: 08/14/24
Heart Rate: 55
Rate: bradycardiac
Rhythm: sinus
Perley: normal axis
Interval: normal interval
QRS Pattern: normal QRS
Ischemia: no ischemia
*Critical Care Note
Total Time (30-74mins, 75-104mins- exclusive of procedures): Not Applicable
Update Note
Update Note:
Sodium 134. Remainder of electrolytes are normal. BUN 25 which is consistent with prior labs. Creatinine and CK within normal limits. No ischemic changes on EKG and troponin within normal limits. Patient feeling improved on reassessment. No
indication for hospitalization at this time. Patient is very worried about being dehydration and states her PCP told her to drink 2-3 Propels a day. No objective evidence of dehydration currently. She was provided with reassurance and advised to
f/u with her PCP. ED return precautions discussed. She was discharged in stable condition.
ED Attending Note
-
Portions of this chart may have been created with voice recognition software.� Occasional wrong word or��sound alike� substitutions may have occurred due to the inherent limitations of voice recognition software.
Discharge Plan
Departure
Patient Disposition: Home (Routine Discharge)
Date of Disposition: 08/14/24
Time of Disposition: 16:37
Patient with high blood pressure during this ER visit?: Yes
Discharge Problem:
Muscle cramping
Instructions: Dizziness, Adult ED
Prescriptions:
No Action
spironolactone 25 mg Tablet
25 mg PO DAILY
labetalol 300 mg Tablet
300 mg PO BID
lacosamide 100 mg Tablet
100 mg PO BID
calcium carbonate 600 mg calcium (1,500 mg) Tablet
600 mg PO BID
Centrum Adult 50 Plus
1 tab PO DAILY
lidocaine 4 % Adhesive Patch,Medicated
1 patch topical DAILY Qty: 5 0RF
oxycodone 5 mg Tablet
5 mg PO Q4HPRN PRN (Reason: moderate pain) Qty: 4 0RF
aspirin 81 MG tablet,chewable
81 mg PO DAILY Qty: 4 0RF
nifedipine 30 MG tablet extended release
30 mg PO DAILY Qty: 90 0RF
nifedipine 60 MG tablet extended release
60 mg PO HS Qty: 90 0RF
Referrals:
Mell Sheikh PA-C [Family Provider] -
Activity Restrictions/Additional Instructions:
Drink 8 cups of 8 ounces of water per day.
Please follow-up with your family doctor next week. Return to the ER with any new or worsening symptoms.
Interventions
Interventions:
*Risk Screen - Suicide Last Done: 08/14/24 12:50
*General Assessment Last Done: 08/14/24 13:11
*Neglect/Abuse Screening Last Done: 08/14/24 12:50
ED- Fall Risk Assessment Last Done: 08/14/24 15:02
*ED COVID-19 Vaccine History Last Done: 08/14/24 13:11
*Nursing Disposition Last Done: 08/14/24 17:34
ED- Cardiac Assessment Last Done: 08/14/24 15:02
ED- Neurological Assessment Last Done: 08/14/24 15:02
ED- Pulmonary Assessment Last Done: 08/14/24 15:02
Discharge Date and Time
Discharge Date/Time: 08/14/24 17:35
Print Language: CHINESE
[2024-08-14 13:32] VITALS: BP 157/72
[2024-08-14] MEDS: NSS 500 IV (14:54)
[2024-08-14 15:00] LABS: % Basophils 0.8 % (0-2); % Eosinophils 11.9 % (0-6); % Immature Granulocytes 0.2 % (0-0.5); % Lymphocytes 18.3 % (20.5-51.1); % Monocytes 9.2 % (1.7-9.3); % Neutrophils 59.6 % (42.2-75.2); Absolute Basophils 0.1 10^3/uL (0-0.2); Absolute Eosinophils 0.7 10^3/uL (0-0.7); Absolute Lymphocytes 1.1 10^3/uL (1.2-3.4); Absolute Monocytes 0.6 10^3/uL (0.1-0.6); Absolute Neutrophils 3.7 10^3/uL (1.4-6.5); Hematocrit 39.4 % (37.0-47.0); Hemoglobin 13.8 g/dL (12.0-16.0); Mean Corpuscular Hgb 29.2 pg (27.0-31.0); Mean Corpuscular Volume 83.3 fL (81.0-99.0); Mean Platelet Volume 9.7 fL (7.4-10.4); Nucleated Red Blood Cells % 0 %; Platelet Count 168 10^3/uL (130-400); Red Blood Cell Count 4.73 10^6/uL (4.20-5.40); Red Cell Dist. Width 13.7 % (11.5-14.5); White Blood Cell Count 6.1 10^3/uL (4.8-10.8)
[2024-08-14 15:01] VITALS: BP 169/82
[2024-08-14 15:24] LABS: Troponin I < 0.012 ng/ml
[2024-08-14 15:48] LABS: ALT (SGPT) 39 U/L (0-35); AST (SGOT) 36 U/L (14-36); Albumin 4.1 g/dl (3.5-5.0); Alkaline Phosphatase 147 U/L (38-126); Blood Urea Nitrogen 25 mg/dl (7-17); Calcium 8.9 mg/dl (8.4-10.2); Carbon Dioxide 22 mmol/L (22-30); Chloride 101 mmol/L (98-107); Creatine Phosphokinase 52 U/L (30-135); Glucose 94 mg/dl (70-99); Potassium 3.7 mmol/L (3.5-5.1); Sodium 134 mmol/L (135-145); Total Bilirubin 0.6 mg/dl (0.2-1.3); eGFR > 60.00
--- NOTE | 2024-08-14 17:00 | VATNOTE ---
left subq port deaccessed per protocol. Brisk blood return noted prior to.
[2024-08-14 17:33] VITALS: BP 142/78
== END 2024-08-14 17:35 | disposition home or self-care (01) ==
LOC: EMR 12:43
PROVIDERS: Physician Assistant; EMERGENCY PHYSICIAN Emergency Medicine; FAMILY PHYSICIAN Physician Assistant Medical
DX: R25.2 Cramp and spasm (principal); I12.9 Hypertensive chronic kidney disease with stage 1 through stage 4 chronic kidney disease, or unspecified chronic kidney disease; N18.9 Chronic kidney disease, unspecified
CPT/HCPCS: 80053; 82550; 83735; 84484; 85025; 93005; 93971; 96361; 96374; 99285

== ENCOUNTER 2024-08-23 11:17 | Emergency (ER) | payer MEDICARE, BC, SELFPAY ==
[2024-08-23 11:19] VITALS: BP 189/99
--- NOTE | 2024-08-23 13:10 | ED.GENMED ---
History of Present Illness
General
Chief Complaint: Dehydration Symptoms
Source: patient
Exam Limitations: none
Time Seen by Provider: 08/23/24 12:07
History of Present Illness
History of Present Illness:
Patient presents to ED complaining of continual muscle cramping sensation and generalized weakness over the past 1 month. Patient was evaluated in ED 2 weeks ago for similar complaint and received IV fluids during evaluation with improvement
symptoms. Last night, patient states that after she went to the restroom, she had difficult time standing up due to extreme weakness. Denies headache. Denies dizziness. Denies loss of sensation. Denies difficulty with speech. Patient has
changed different forms of hydration at home, including Gatorade, without improvement symptoms. Patient is currently taking spironolactone. Denies loss of appetite. Denies loss of weight.
Past History
Past History
ED Past Medical History: Cancer (Breast cancer), CVA (Right hemispheric CVA January 2022), HTN, Hypercholesterolemia, Valvular disease (Mitral and tricuspid regurgitation) and Other (Chronic headaches, back pain, neck pain)
ED Past Surgical History: Gynecological (Bilateral mastectomies) and Other (mastectomy)
Social History
Tobacco: Non-smoker
Alcohol: Occasional
Drug: None
Personal:
Living: with family
Employment: Retired
Family History
Family History: Hypertension
Review of Systems
Review of Systems
Allergies reviewed?: Yes
All Other Systems: ROS reviewed and negative except as documented in HPI and ROS
Constitutional: Reports no symptoms; Denies fever
EENT: Reports no symptoms
Respiratory: Reports no symptoms
Cardiac: Reports no symptoms
ABD/GI: Reports no symptoms
: Reports no symptoms
Musculoskeletal: Reports muscle pain
Skin: Reports no symptoms
Neurological: Reports weakness; Denies dizzy or headache
Phy Exam
Physical Exam
Physical Exam:
Physical Exam
General: mild distress, not acutely ill. afebrile
Head: nc/at. eomi
Neck: supple. no meningeal signs.
Heart: s1/s2 regular rate and rhythm, no murmur. equal radial pulses.
Lungs: no acute respiratory distress. clear bilaterally
Abdomen: normal bowel sounds. not tender.
Neuro: alert and oriented. no focal neurological deficits. normal speech
Skin: no rash
Psychiatric: well kept. interactive and cooperative
Extremities: no edema. no calf tenderness.
Course
Orders/Labs/Results
Orders:
Orders
08/23/24 13:24
CPK [Creatine Phosphokinase] Urgent
Complete Blood Count/With Diff Urgent
Comprehensive Metabolic Panel Urgent
Magnesium Urgent
TSH Urgent
Troponin I Urgent
Urinalysis Reflex To Culture Urgent
Date Specimen was Collected: 08/23/24
Time Specimen was Collected: 12:52
Abnormal Lab Results
08/23/24
13:24
MPV 10.9 H fL
(7.4-10.4)
Absolute Lymphs (auto) 1.1 L 10^3/uL
(1.2-3.4)
Absolute Monos (auto) 0.7 H 10^3/uL
(0.1-0.6)
Absolute Eos (auto) 0.8 H 10^3/uL
(0-0.7)
Lymphocytes % 17.4 L %
(20.5-51.1)
Monocytes % 10.8 H %
(1.7-9.3)
Eosinophils % 11.5 H %
(0-6)
Sodium 133 L mmol/L
(135-145)
Chloride 97 L mmol/L
(98-107)
BUN 29 H mg/dl
(7-17)
Glucose 107 H mg/dl
(70-99)
AST 51 H U/L
(14-36)
ALT 52 H U/L
(0-35)
Alkaline Phosphatase 168 H U/L
(38-126)
08/23/24 13:24
08/23/24 13:24
Vital Signs
Initial and Last Documented VS:
Initial Vital Signs
Temp Pulse Resp BP Pulse Ox
97.8 F 71 18 189/99 98
08/23/24 11:19 08/23/24 11:19 08/23/24 11:19 08/23/24 11:19 08/23/24 11:19
Last Documented Vital Signs
Temp Pulse Resp BP Pulse Ox
97.9 F 73 18 171/84 99
08/23/24 14:00 08/23/24 14:00 08/23/24 11:19 08/23/24 16:00 08/23/24 14:43
MDM/Problems Addressed
MDM/Problems Addressed:
Patient's presenting symptoms multifactorial, likely secondary to drug reaction. Fortunately, patient remains afebrile, hemodynamically stable, and nontoxic-appearing. As such, decision made to discharge patient home at this time, and she will
follow-up with her recovery auditor on Sunday as scheduled for reevaluation, including discussion about whether or not she needs to continue some of her medications, i.e. spironolactone. Patient expressed understanding at time of discharge.
*Critical Care Note
Total Time (30-74mins, 75-104mins- exclusive of procedures): Not Applicable
ED Attending Note
-
Portions of this chart may have been created with voice recognition software.� Occasional wrong word or��sound alike� substitutions may have occurred due to the inherent limitations of voice recognition software.
Discharge Plan
Departure
Patient Disposition: Home (Routine Discharge)
Date of Disposition: 08/23/24
Time of Disposition: 16:11
Patient with high blood pressure during this ER visit?: Yes
Discharge Problem:
Hyponatremia
Instructions: Hyponatremia, BLOOD PRESSURE
Prescriptions:
No Action
spironolactone 25 mg Tablet
25 mg PO DAILY
labetalol 300 mg Tablet
300 mg PO BID
lacosamide 100 mg Tablet
100 mg PO BID
calcium carbonate 600 mg calcium (1,500 mg) Tablet
600 mg PO BID
Centrum Adult 50 Plus
1 tab PO DAILY
lidocaine 4 % Adhesive Patch,Medicated
1 patch topical DAILY Qty: 5 0RF
oxycodone 5 mg Tablet
5 mg PO Q4HPRN PRN (Reason: moderate pain) Qty: 4 0RF
aspirin 81 MG tablet,chewable
81 mg PO DAILY Qty: 4 0RF
nifedipine 30 MG tablet extended release
30 mg PO DAILY Qty: 90 0RF
nifedipine 60 MG tablet extended release
60 mg PO HS Qty: 90 0RF
Referrals:
Mell Sheikh PA-C [Family Provider] -
Amada Vergara MD [Active] -
Activity Restrictions/Additional Instructions:
As discussed, please follow-up with your primary care physician and/or recovery auditor next week for reevaluation.
Interventions
Interventions:
*Risk Screen - Suicide Last Done: 08/23/24 11:19
*General Assessment Last Done: 08/23/24 11:19
*Neglect/Abuse Screening Last Done: 08/23/24 11:19
ED- Fall Risk Assessment Last Done: 08/23/24 12:19
*ED COVID-19 Vaccine History Last Done: 08/23/24 12:20
*Nursing Disposition Last Done: 08/23/24 16:59
ED- Cardiac Assessment Last Done: 08/23/24 12:19
ED- Neurological Assessment Last Done: 08/23/24 12:19
ED- Pulmonary Assessment Last Done: 08/23/24 12:19
Discharge Date and Time
Discharge Date/Time: 08/23/24 17:00
Print Language: ITALIAN
[2024-08-23 13:37] VITALS: BP 152/69
[2024-08-23 13:39] LABS: % Basophils 0.6 % (0-2); % Eosinophils 11.5 % (0-6); % Immature Granulocytes 0.3 % (0-0.5); % Lymphocytes 17.4 % (20.5-51.1); % Monocytes 10.8 % (1.7-9.3); % Neutrophils 59.4 % (42.2-75.2); Absolute Eosinophils 0.8 10^3/uL (0-0.7); Absolute Lymphocytes 1.1 10^3/uL (1.2-3.4); Absolute Monocytes 0.7 10^3/uL (0.1-0.6); Absolute Neutrophils 3.9 10^3/uL (1.4-6.5); Hematocrit 40.8 % (37.0-47.0); Hemoglobin 14.1 g/dL (12.0-16.0); Mean Corp Hgb Conc. 34.6 g/dL (33.0-37.0); Mean Corpuscular Hgb 28.8 pg (27.0-31.0); Mean Corpuscular Volume 83.4 fL (81.0-99.0); Mean Platelet Volume 10.9 fL (7.4-10.4); Nucleated Red Blood Cells % 0 %; Platelet Count 181 10^3/uL (130-400); Red Blood Cell Count 4.89 10^6/uL (4.20-5.40); Red Cell Dist. Width 13.7 % (11.5-14.5); White Blood Cell Count 6.5 10^3/uL (4.8-10.8)
[2024-08-23 13:54] LABS: Urine Albumin Negative (Neg - Trace); Urine Bilirubin Negative (Negative); Urine Character Clear (Clear); Urine Color Yellow; Urine Glucose Negative (Negative); Urine Ketone Negative (Negative); Urine Leukocyte Negative (Negative); Urine Nitrite Negative (Negative); Urine Occult Blood Negative (Negative); Urine Specific Gravity 1.005 (<1.030); Urine Urobilinogen Negative (Neg - 1+)
[2024-08-23 14:00] VITALS: BP 137/80
[2024-08-23 14:01] LABS: Troponin I 0.018 ng/ml
[2024-08-23 14:06] LABS: ALT (SGPT) 52 U/L (0-35); AST (SGOT) 51 U/L (14-36); Albumin 4.4 g/dl (3.5-5.0); Alkaline Phosphatase 168 U/L (38-126); Blood Urea Nitrogen 29 mg/dl (7-17); Calcium 9.2 mg/dl (8.4-10.2); Carbon Dioxide 22 mmol/L (22-30); Chloride 97 mmol/L (98-107); Glucose 107 mg/dl (70-99); Magnesium 1.9 mg/dl (1.6-2.3); Potassium 4.4 mmol/L (3.5-5.1); Sodium 133 mmol/L (135-145); Total Bilirubin 0.4 mg/dl (0.2-1.3); Total Protein 6.7 g/dl (6.3-8.2); eGFR > 60.00
[2024-08-23 14:44] LABS: Creatine Phosphokinase 62 U/L (30-135)
[2024-08-23 15:33] VITALS: BP 163/93
[2024-08-23 16:00] VITALS: BP 171/84
== END 2024-08-23 17:00 | disposition home or self-care (01) ==
LOC: EMR 11:17
PROVIDERS: EMERGENCY PHYSICIAN Emergency Medicine; FAMILY PHYSICIAN Physician Assistant Medical
DX: E87.1 Hypo-osmolality and hyponatremia (principal); I10 Essential (primary) hypertension
CPT/HCPCS: 99283; 80053; 81003; 82550; 83735; 84443; 84484; 85025

== ENCOUNTER 2024-09-12 17:01 | Emergency (ER) | payer MEDICARE, BC, SELFPAY ==
[2024-09-12 17:02] VITALS: BP 201/112
[2024-09-12 17:35] LABS: % Basophils 0.6 % (0-2); % Eosinophils 10.2 % (0-6); % Immature Granulocytes 0.3 % (0-0.5); % Lymphocytes 17.9 % (20.5-51.1); Absolute Eosinophils 0.7 10^3/uL (0-0.7); Absolute Lymphocytes 1.1 10^3/uL (1.2-3.4); Absolute Monocytes 0.6 10^3/uL (0.1-0.6); Absolute Neutrophils 3.9 10^3/uL (1.4-6.5); Hematocrit 42.2 % (37.0-47.0); Hemoglobin 14.7 g/dL (12.0-16.0); Mean Corp Hgb Conc. 34.8 g/dL (33.0-37.0); Mean Corpuscular Hgb 29.9 pg (27.0-31.0); Mean Corpuscular Volume 85.9 fL (81.0-99.0); Mean Platelet Volume 10.2 fL (7.4-10.4); Nucleated Red Blood Cells % 0 %; Platelet Count 175 10^3/uL (130-400); Red Blood Cell Count 4.91 10^6/uL (4.20-5.40); Red Cell Dist. Width 13.8 % (11.5-14.5); White Blood Cell Count 6.4 10^3/uL (4.8-10.8)
[2024-09-12 17:43] LABS: ALT (SGPT) 80 U/L (0-35); AST (SGOT) 67 U/L (14-36); Albumin 4.6 g/dl (3.5-5.0); Alkaline Phosphatase 197 U/L (38-126); Blood Urea Nitrogen 39 mg/dl (7-17); Calcium 9.6 mg/dl (8.4-10.2); Carbon Dioxide 23 mmol/L (22-30); Chloride 95 mmol/L (98-107); Glucose 107 mg/dl (70-99); Potassium 4.3 mmol/L (3.5-5.1); Sodium 130 mmol/L (135-145); Total Bilirubin 0.4 mg/dl (0.2-1.3); eGFR > 60.00
[2024-09-12 18:11] VITALS: BP 189/90
--- NOTE | 2024-09-12 18:20 | ED.GENMED ---
History of Present Illness
General
Chief Complaint: Blood Pressure Problem
Time Seen by Provider: 09/12/24 18:20
History of Present Illness
History of Present Illness:
TIME OF INITIAL ENCOUNTER: 6:25 PM
HPI: The patient took her blood pressure earlier today. Of note she had both coffee and Advil earlier in the day. Later on she noted some twitching to the right side of the face. Overall she has no ongoing symptoms but was concerned because
marked blood pressure elevation. Show still reports some ongoing fatigue which has been going on for months.
EXAM:
GENERAL: Well appearing in no distress but is found to be hypertensive
HEENT: Moist oral mucosa
CARDIOVASCULAR: No murmurs, normal heart rate, regular rhythm, No chest wall tenderness
PULMONARY: No respiratory distress, breath sounds are clear and equal
ABDOMEN: Soft with no peritoneal signs, no tenderness
NEUROLOGIC: Excellent strength all extremities, no coordination deficits, no twitching noted to the face, no facial asymmetry
PSYCHIATRIC: Appropriate mental status, normal insight and judgement
EXTREMITIES: Nontender, no edema, moves all extremities equally
SKIN: No rash, no lesions
NUMBER AND COMPLEXITY OF PROBLEMS ADDRESSED AT THE ENCOUNTER
� Chronic conditions affecting care: High blood pressure, CVA/TIA, anxiety, breast
� Acute Exacerbation and/or Progression of Chronic Illness: This is an acute but recurring problem
� Differential Diagnosis includes: Poorly controlled high blood pressure, myoclonic jerking/twitching, electrolyte abnormality, renal insufficiency
AMOUNT AND/OR COMPLEXITY OF DATA TO BE REVIEWED AND ANALYZED
� I performed an independent evaluation of and my interpretation is:
EKG: Sinus 81, nonspecific ST admittedly, first-degree AV block
CT:
X-rays:
Laboratory Studies: CBC unremarkable, sodium 130, BUN 39, creatinine 1.0, transaminases slightly elevated with muscle cramping sensation
Other:
� Review of other/old records: I reviewed records, the patient was seen here less than 1 month ago
� Clinical information was obtained by an independent historian: I spoke to the at bedside
� Prescriptions/Medications Considered but not given:
� Further testing considered but not performed:
RISK OF COMPLICATIONS AND/OR MORBIDITY OR MORTALITY OF PATIENT MANAGEMENT
� Social determinants of health affecting care:
� Discussion with other providers:
� Escalation of care including admission/observation vs risk of discharge considered: The patient did not take her evening medications yet (she normally takes at 8 PM but we are giving a little bit early here)�blood pressure has
improved. Neurologic exam is unremarkable. No clear indication for admission to the hospital.
ANY OTHER UPDATES:
7:30 PM: I reassessed the patient: Blood pressure has improved to 160s over 70s after we gave her her evening meds.. No ongoing symptoms.
Past History
Past History
ED Past Medical History: Cancer (Breast cancer), CVA (Right hemispheric CVA January 2022), HTN, Hypercholesterolemia, Valvular disease (Mitral and tricuspid regurgitation) and Other (Chronic headaches, back pain, neck pain)
ED Past Surgical History: Gynecological (Bilateral mastectomies) and Other (mastectomy)
Social History
Tobacco: Non-smoker
Alcohol: Occasional
Drug: None
Personal:
Living: with family
Employment: Retired
Family History
Family History: Hypertension
Phy Exam
Physical Exam
Physical Exam:
See HPI
Course
Orders/Labs/Results
Orders:
Orders
09/12/24 17:05
Electrocardiogram (*1) Urgent
Reason for Study: Hypertension, Benign
09/12/24 17:06
EKG- Treatment ONCE
09/12/24 17:19
Complete Blood Count/With Diff Urgent
Comprehensive Metabolic Panel Urgent
09/12/24 18:29
NIFEdipine EXTENDED RELEASE [Procardia Xl (Extended Release)] 60 mg PO NOW STA
09/12/24 18:37
Labetalol [Trandate] 300 mg PO NOW STA
Abnormal Lab Results
09/12/24
17:19
Absolute Lymphs (auto) 1.1 L 10^3/uL
(1.2-3.4)
Lymphocytes % 17.9 L %
(20.5-51.1)
Monocytes % 10.0 H %
(1.7-9.3)
Eosinophils % 10.2 H %
(0-6)
Sodium 130 L mmol/L
(135-145)
Chloride 95 L mmol/L
(98-107)
BUN 39 H mg/dl
(7-17)
Glucose 107 H mg/dl
(70-99)
AST 67 H U/L
(14-36)
ALT 80 H U/L
(0-35)
Alkaline Phosphatase 197 H U/L
(38-126)
09/12/24 17:19
09/12/24 17:19
Vital Signs
Blood pressure: 189/100
Initial and Last Documented VS:
Initial Vital Signs
Temp Pulse Resp BP Pulse Ox
97.9 F 70 16 201/112 96
09/12/24 17:02 09/12/24 17:02 09/12/24 17:02 09/12/24 17:02 09/12/24 17:02
Last Documented Vital Signs
Temp Pulse Resp BP Pulse Ox
97.9 F 86 21 163/76 96
09/12/24 17:02 09/12/24 19:15 09/12/24 19:15 09/12/24 19:00 09/12/24 19:15
*Critical Care Note
Total Time (30-74mins, 75-104mins- exclusive of procedures): Not Applicable
ED Attending Note
-
Portions of this chart may have been created with voice recognition software.� Occasional wrong word or��sound alike� substitutions may have occurred due to the inherent limitations of voice recognition software.
Discharge Plan
Departure
Patient Disposition: Home (Routine Discharge)
Date of Disposition: 09/12/24
Time of Disposition: 19:38
Patient with high blood pressure during this ER visit?: Yes
Discharge Problem:
High blood pressure
Instructions: High Blood Pressure (DC), BLOOD PRESSURE
Prescriptions:
No Action
spironolactone 25 mg Tablet
25 mg PO DAILY
labetalol 300 mg Tablet
300 mg PO BID
lacosamide 100 mg Tablet
100 mg PO BID
calcium carbonate 600 mg calcium (1,500 mg) Tablet
600 mg PO BID
Centrum Adult 50 Plus
1 tab PO DAILY
lidocaine 4 % Adhesive Patch,Medicated
1 patch topical DAILY Qty: 5 0RF
oxycodone 5 mg Tablet
5 mg PO Q4HPRN PRN (Reason: moderate pain) Qty: 4 0RF
aspirin 81 MG tablet,chewable
81 mg PO DAILY Qty: 4 0RF
nifedipine 30 MG tablet extended release
30 mg PO DAILY Qty: 90 0RF
nifedipine 60 MG tablet extended release
60 mg PO HS Qty: 90 0RF
Referrals:
Mell Sheikh PA-C [Family Provider] -
Activity Restrictions/Additional Instructions:
We gave you your evening blood pressure medications. You can consider talking with your primary care doctor about your blood pressure medications.
Interventions
Interventions:
*Risk Screen - Suicide Last Done: 09/12/24 17:06
*Neglect/Abuse Screening Last Done: 09/12/24 17:06
Discharge Date and Time
Print Language: [id number]
[2024-09-12 18:50] VITALS: BP 171/88
[2024-09-12] MEDS: TRANDATE 300 MG PO (18:51)
[2024-09-12] MEDS: PROCARDIA XL (EXTENDED RELEASE) 60 MG PO (18:52)
[2024-09-12 19:00] VITALS: BP 163/76
== END 2024-09-12 20:11 | disposition home or self-care (01) ==
LOC: EMR 17:01
PROVIDERS: EMERGENCY PHYSICIAN Emergency Medicine; FAMILY PHYSICIAN Physician Assistant Medical
DX: I10 Essential (primary) hypertension (principal); R53.83 Other fatigue; E78.00 Pure hypercholesterolemia, unspecified; Z82.49 Family history of ischemic heart disease and other diseases of the circulatory system; Z85.3 Personal history of malignant neoplasm of breast; Z86.73 Personal history of transient ischemic attack (TIA), and cerebral infarction without residual deficits; Z90.13 Acquired absence of bilateral breasts and nipples
CPT/HCPCS: 99283; 80053; 85025; 93005

== ENCOUNTER 2024-09-16 13:40 | Emergency (ER) | payer MEDICARE, BC, SELFPAY ==
[2024-09-16 13:42] VITALS: BP 190/98
--- NOTE | 2024-09-16 15:05 | ED.GENMED ---
History of Present Illness
General
Chief Complaint: Weakness
Source: patient
Exam Limitations: none
Time Seen by Provider: 09/16/24 14:37
Nursing documentation reviewed up to this point in time: agreed with
History of Present Illness
History of Present Illness:
pt is a 64 y/o F with h/o h/o breast CA remotely, CVA/tia, htn
mitral regurg
here with concerns for dehydration
she is having generalized fatigue and myalgias since yesterday
it sounds as if this is ongoing and has sometimes been related to being dehdyrated or having hyponatremia
she is very concerned about how many ounces of fluids she is supposed to drink. she was told by her PCP that she should use 2 propells a day and sh ehas been doing that
yesterday she did some very mild exercise and felt fatigue and a lot of bodyaches
she treid motrin which helped a little but then woke up today and still felt that way. called her PCP and was told to come get her electrolytes checked
she has had many ED visits for same sypmtoms but has not been hospitalized
she is no longer on cholesterol mediation because she didn't tolerate it well
she is very anxious
denies fever, chills, cp, sob, abodminal pain, nauesa, vomiting, iarrhea
is eating well
no sore throat
Past History
Past History
ED Past Medical History: Cancer (Breast cancer), CVA (Right hemispheric CVA January 2022), HTN, Hypercholesterolemia, Valvular disease (Mitral and tricuspid regurgitation) and Other (Chronic headaches, back pain, neck pain)
ED Past Surgical History: Gynecological (Bilateral mastectomies) and Other (mastectomy)
Social History
Tobacco: Non-smoker
Alcohol: Occasional
Drug: None
Personal:
Living: with family
Employment: Retired
Family History
Family History: Hypertension
Review of Systems
Review of Systems
Allergies reviewed?: Yes
All Other Systems: Not applicable
Phy Exam
Physical Exam
Physical Exam:
GENERAL: Alert , in no apparent distress
EYE: pupils equal and reactive
NECK: Supple
ENT: o/p clr, mmm.
CARDIAC: Regular rate and rhythm .no apprecaited murmur
LUNGS: Clear breath sounds bilaterally, no acute respiratory distress, no wheezes/rales/rhonchi, occ cough
ABDOMEN: Soft, without focal tenderness, no r/g, no cvat, normal bowel sounds
NEUROLOGICAL: Alert and oriented, no focal neuro deficits
SKIN: Warm and dry, skin intact.
MUSCULOSKELETAL: No edema, well perfused. neg brenda's sign
no tenderness to calves
no swelling
moving joints well
PSYCH: Normal and appropriate interaction. mildly anxious
Course
Orders/Labs/Results
Orders:
Orders
09/16/24 15:04
Complete Blood Count/With Diff Urgent
Comprehensive Metabolic Panel Urgent
Creatine Phosphokinase Urgent
Comment: ADD ON
Urinalysis Reflex To Culture Urgent
Date Specimen was Collected: 09/16/24
Time Specimen was Collected: 14:35
09/16/24 15:05
Add On- LAB Urgent
Tests Added?: cpk
09/16/24 15:07
COVID-19 Antigen Urgent
Source: Nasal Swab
Influenza A+B Rapid Molecular Urgent
LARRY Source: Nasal Swab
Specimen Description:
Abnormal Lab Results
09/16/24
15:04
Abs Immat Gran (auto) 0.1 H 10^3/uL
(0-0.05)
Absolute Monos (auto) 0.7 H 10^3/uL
(0.1-0.6)
Immature Gran % 1.1 H %
(0-0.5)
Lymphocytes % 15.8 L %
(20.5-51.1)
Eosinophils % 8.2 H %
(0-6)
Chloride 96 L mmol/L
(98-107)
BUN 31 H mg/dl
(7-17)
ALT 55 H U/L
(0-35)
Alkaline Phosphatase 165 H U/L
(38-126)
09/16/24 15:04
09/16/24 15:04
Vital Signs
Initial and Last Documented VS:
Initial Vital Signs
Temp Pulse Resp BP Pulse Ox
97.6 F 53 16 190/98 98
09/16/24 13:42 09/16/24 13:42 09/16/24 13:42 09/16/24 13:42 09/16/24 13:42
Last Documented Vital Signs
Temp Pulse Resp BP Pulse Ox
97.6 F 73 23 172/85 98
09/16/24 13:42 09/16/24 16:15 09/16/24 16:15 09/16/24 16:00 09/16/24 16:15
MDM/Problems Addressed
Differential Diagnosis Includes:
anxiety, hyponatremia
MDM/Problems Addressed:
64 y/o F
cva, htn, mr,
very anxious
has had hyponatremia and dehdyration before causing some weakness symptoms and muscle aches
she follows strict instructionsa bout fluid restrictions and drinking propell but she is very anxious
some sore muscles after exercising lightly yesterday
she feels overhwlemed
she is very tearful about being stressed about following these instructions and is always worried about having hyponatremia
hanson shad a few visits
here other thn anxiou appearing, no other fingins on exam
hypertensive likely related to her anxiety
cpk nromal
sodium 135
i feel that pt is stressed and overwhelemd and depressed
but she has no SI
reassured about her labs
f/u with her pcp
*Critical Care Note
Total Time (30-74mins, 75-104mins- exclusive of procedures): Not Applicable
ED Attending Note
-
Portions of this chart may have been created with voice recognition software.� Occasional wrong word or��sound alike� substitutions may have occurred due to the inherent limitations of voice recognition software.
Discharge Plan
Departure
Patient Disposition: Home (Routine Discharge)
Date of Disposition: 09/16/24
Time of Disposition: 16:29
Patient with high blood pressure during this ER visit?: No
Condition: Fair
Covid-19: Not Applicable
Discharge Problem:
Myalgia
Instructions: Muscle and bone pain - Discharge instructions, BLOOD PRESSURE
Prescriptions:
No Action
spironolactone 25 mg Tablet
25 mg PO DAILY
labetalol 300 mg Tablet
300 mg PO BID
lacosamide 100 mg Tablet
100 mg PO BID
calcium carbonate 600 mg calcium (1,500 mg) Tablet
600 mg PO BID
Centrum Adult 50 Plus
1 tab PO DAILY
lidocaine 4 % Adhesive Patch,Medicated
1 patch topical DAILY Qty: 5 0RF
oxycodone 5 mg Tablet
5 mg PO Q4HPRN PRN (Reason: moderate pain) Qty: 4 0RF
aspirin 81 MG tablet,chewable
81 mg PO DAILY Qty: 4 0RF
nifedipine 30 MG tablet extended release
30 mg PO DAILY Qty: 90 0RF
nifedipine 60 MG tablet extended release
60 mg PO HS Qty: 90 0RF
Referrals:
Karel Landaverde MD [Family Provider] - Follow up in 2-3 days
Activity Restrictions/Additional Instructions:
Were not sure the cause of your body aches but you tested negative for flu and COVID today. You had fairly normal electrolytes that appear stable. You can continue your propranolol, using 1-2 a day. Continue your fluid instructions but try to
give yourself some norberto. Follow-up with your family doctor next week. Watch for any new symptoms like fever, vomiting or diarrhea, joint swelling, rash etc. and return as needed. Otherwise please follow-up with your doctor
Interventions
Interventions:
*Risk Screen - Suicide Last Done: 09/16/24 13:42
*General Assessment Last Done: 09/16/24 13:42
*Neglect/Abuse Screening Last Done: 09/16/24 13:42
ED- Fall Risk Assessment Last Done: 09/16/24 15:13
*ED COVID-19 Vaccine History Last Done: 09/16/24 14:41
*Nursing Disposition Last Done: 09/16/24 17:02
ED- Cardiac Assessment Last Done: 09/16/24 15:13
ED- Neurological Assessment Last Done: 09/16/24 15:13
ED- Pulmonary Assessment Last Done: 09/16/24 15:13
Discharge Date and Time
Discharge Date/Time: 09/16/24 17:10
Print Language: SAMI
[2024-09-16 15:10] VITALS: BMI 28.8
[2024-09-16 15:11] VITALS: BP 189/92
[2024-09-16 15:15] LABS: % Basophils 0.5 % (0-2); % Eosinophils 8.2 % (0-6); % Immature Granulocytes 1.1 % (0-0.5); % Lymphocytes 15.8 % (20.5-51.1); % Neutrophils 65.4 % (42.2-75.2); Absolute Eosinophils 0.6 10^3/uL (0-0.7); Absolute Immature Granulocytes 0.1 10^3/uL (0-0.05); Absolute Lymphocytes 1.2 10^3/uL (1.2-3.4); Absolute Monocytes 0.7 10^3/uL (0.1-0.6); Absolute Neutrophils 4.9 10^3/uL (1.4-6.5); Hematocrit 41.7 % (37.0-47.0); Hemoglobin 14.6 g/dL (12.0-16.0); Mean Corpuscular Hgb 29.1 pg (27.0-31.0); Mean Corpuscular Volume 83.2 fL (81.0-99.0); Mean Platelet Volume 10.3 fL (7.4-10.4); Nucleated Red Blood Cells % 0 %; Platelet Count 200 10^3/uL (130-400); Red Blood Cell Count 5.01 10^6/uL (4.20-5.40); Red Cell Dist. Width 13.8 % (11.5-14.5); White Blood Cell Count 7.5 10^3/uL (4.8-10.8)
[2024-09-16 15:30] LABS: COVID-19 Antigen Negative (Negative)
[2024-09-16 15:38] LABS: Urine Albumin Negative (Neg - Trace); Urine Bilirubin Negative (Negative); Urine Character Clear (Clear); Urine Color Yellow; Urine Glucose Negative (Negative); Urine Ketone Negative (Negative); Urine Leukocyte Negative (Negative); Urine Nitrite Negative (Negative); Urine Occult Blood Negative (Negative); Urine Specific Gravity 1.005 (<1.030); Urine Urobilinogen Negative (Neg - 1+)
[2024-09-16 15:49] LABS: ALT (SGPT) 55 U/L (0-35); AST (SGOT) 32 U/L (14-36); Albumin 4.5 g/dl (3.5-5.0); Alkaline Phosphatase 165 U/L (38-126); Blood Urea Nitrogen 31 mg/dl (7-17); Calcium 9.3 mg/dl (8.4-10.2); Carbon Dioxide 25 mmol/L (22-30); Chloride 96 mmol/L (98-107); Creatine Phosphokinase 35 U/L (30-135); Estimated Creatinine Clearance 67 ml/min; Glucose 85 mg/dl (70-99); Potassium 4.2 mmol/L (3.5-5.1); Sodium 135 mmol/L (135-145); Total Bilirubin 0.3 mg/dl (0.2-1.3); Total Protein 6.8 g/dl (6.3-8.2); eGFR > 60.00
[2024-09-16 16:00] VITALS: BP 172/85
== END 2024-09-16 17:10 | disposition home or self-care (01) ==
LOC: EMR 13:40
PROVIDERS: Physician Assistant; EMERGENCY PHYSICIAN Emergency Medicine; FAMILY PHYSICIAN Family Medicine
DX: M79.10 Myalgia, unspecified site (principal); E78.00 Pure hypercholesterolemia, unspecified; I10 Essential (primary) hypertension; Z86.73 Personal history of transient ischemic attack (TIA), and cerebral infarction without residual deficits; Z85.3 Personal history of malignant neoplasm of breast; Z90.13 Acquired absence of bilateral breasts and nipples
CPT/HCPCS: 99283; 80053; 81003; 82550; 85025; 87502; 87811